=== PATIENT | female | born 1950 | race Caucasian/White ===

== ENCOUNTER 2017-09-04 09:13 | Emergency (ER) | payer OTHER ==
[~2017-09-04] VITALS: Ht 167.6 cm; Wt 115.2 kg
[~2017-09-04 09:13] MED LIST: ATENOLOL25 MG PO; B COMPLETE1 EACH PO; FISH OIL CONCE1 EAC1 PO; FUROSEMIDE40 MG PO; KLOR-CON M2020 MEQ PO; LITE COAT ASPI325 M1 PO; METFORMIN HCL1000 MG PO; MULTIVITAMIN1 EAC2 PO; OS-CAL 500+D T1 EAC1 PO; PRAVASTATIN SOD80 MG PO; PROAIR HFA8.5 GM IH; SALINE NASAL SP45 ML BOTH NARES; TRAMADOL HCL50 MG PO; VALSARTAN-HCTZ1 EAC2 PO; ZOFRAN ODT4 MG PO
[2017-09-04 10:02] LABS: BASOPHIL (%) 0.7 % (0-1); BASOPHIL COUNT 0.1 K/uL (0-0.1); EOSINOPHIL (%) 2.2 % (0-5); EOSINOPHIL COUNT 0.3 K/uL (0-0.3); HEMATOCRIT 29.2 % (36.0-46.0); IMMATURE GRANULOCYTE (%) 0.6 % (0.0-0.7); LYMPHOCYTE (%) 25.3 % (15-42); LYMPHOCYTE COUNT 3.2 K/uL (1.0-2.8); MCH 24.8 PG (29.0-34.0); MCHC 32.5 G/DL (30.0-36.0); MCV 76.2 FL (83-99); MONOCYTE (%) 10.5 % (3-12); MONOCYTE COUNT 1.3 K/uL (0-0.8); NEUTROPHIL (%) 60.7 % (45-76); NEUTROPHIL COUNT 7.6 K/uL (1.8-6.4); NRBC (%) 0.2 /100 WBC (0-0); RBC DIS.WIDTH-CV 15.6 % (11.8-14.6); RBC DIS.WIDTH-SD 42.5 % (39-53); WHITE BLOOD COUNT 12.5 K/uL (4.1-10.2)
[2017-09-04 10:10] LABS: ALBUMIN 3.9 g/dL (3.2-4.8); CHLORIDE 97 mEq/L (99-109); SODIUM 135 mEq/L (136-147)
[2017-09-04 10:13] LABS: GLUCOSE 173 mg/dL (70-99); TOTAL PROTEIN 7.6 g/dL (6.4-8.3)
[2017-09-04 10:15] LABS: TOTAL BILIRUBIN 0.9 mg/dL (0.0-1.0)
[2017-09-04 10:16] LABS: ALKALINE PHOSPHATASE 142 IU/L (3-129); CREATININE 0.9 mg/dL (0.6-1.3); GFR ESTIMATE (CALCULATED) > 59 mL/min/
[2017-09-04 10:17] LABS: UREA NITROGEN (BUN) 17 mg/dL (9-23)
[2017-09-04 10:18] LABS: AST (GOT) 41 IU/L (2-34)
[2017-09-04 10:20] LABS: ALT (GPT) 32 IU/L (3-49)
[2017-09-04 10:22] LABS: TROP-I INTERPRETATION NEGATIVE; TROPONIN-I < 0.01 ng/mL (0.0-0.30)
[2017-09-04 10:31] LABS: HEMOGLOBIN 9.5 G/DL (11.9-15.5); RED BLOOD COUNT 3.83 M/uL (3.80-5.20)
[2017-09-04 10:47] LABS: PLAT.SUFFICIENCY ADEQUATE; PLATELET COUNT 300 K/uL (156-360)
[2017-09-04 14:29] LABS: HEMATOCRIT 41.4 % (36.0-46.0); HEMOGLOBIN 13.4 G/DL (11.9-15.5); MCV 76.2 FL (83-99)
[2017-09-04 15:00] LABS: ALBUMIN 3.7 g/dL (3.2-4.8)
[2017-09-04 15:01] LABS: CHLORIDE 100 mEq/L (99-109); POTASSIUM 3.2 mEq/L (3.7-5.4); SODIUM 136 mEq/L (136-147)
[2017-09-04 15:03] LABS: GLUCOSE 210 mg/dL (70-99)
[2017-09-04 15:06] LABS: ALKALINE PHOSPHATASE 127 IU/L (3-129); TOTAL BILIRUBIN 0.6 mg/dL (0.0-1.0)
[2017-09-04 15:07] LABS: CREATININE 0.8 mg/dL (0.6-1.3); GFR ESTIMATE (CALCULATED) > 59 mL/min/
[2017-09-04 15:08] LABS: AST (GOT) 42 IU/L (2-34); UREA NITROGEN (BUN) 17 mg/dL (9-23)
[2017-09-04 15:10] LABS: ALT (GPT) 33 IU/L (3-49)
[2017-09-04] MEDS ORDERED: RESTASIS MULTI5.5 ML BOTH EYES (16:00)
[2017-09-04] MEDS ORDERED: FLONASE16 G1 BOTH NARES (16:00)
[2017-09-04] MEDS ORDERED: PREDNISONE20 MG PO (17:20)
[2017-09-04 17:47] VITALS: BP 142/68
== END 2017-09-04 17:47 | disposition home or self-care (01) ==
LOC: EME 09:13
PROVIDERS: Emergency Medicine
DX: J45.909 Unspecified asthma, uncomplicated (principal); R06.00 Dyspnea, unspecified; R94.31 Abnormal electrocardiogram [ECG] [EKG]; K80.20 Calculus of gallbladder without cholecystitis without obstruction; K76.0 Fatty (change of) liver, not elsewhere classified; R16.0 Hepatomegaly, not elsewhere classified; K46.9 Unspecified abdominal hernia without obstruction or gangrene; M19.012 Primary osteoarthritis, left shoulder; M19.011 Primary osteoarthritis, right shoulder; E11.9 Type 2 diabetes mellitus without complications; I10 Essential (primary) hypertension; E78.5 Hyperlipidemia, unspecified; Z79.84 Long term (current) use of oral hypoglycemic drugs; Z79.82 Long term (current) use of aspirin; Z88.1 Allergy status to other antibiotic agents; Z88.5 Allergy status to narcotic agent
CPT/HCPCS: 71046; 71275; 74177; 80053; 84484; 85014; 85018; 85025; 87502; 93005; 94640; 99281; 99285; J1100; J7030; J7644